=== PATIENT | female | born 1970 | race American Indian/Alaskan Native ===

== ENCOUNTER 2019-01-05 19:52 | Emergency (ER) | payer MEDICAID ==
--- NOTE | 2019-01-05 20:13 | EDM.PDOC ---
ED HPI GENERAL MEDICAL PROBLEM - General Chief Complaint: Genitourinary Problem Stated Complaint: UTI Time Seen by Provider: 01/05/19 19:56 Source of Information: Reports: Patient History Limitations: Reports: No Limitations - History of Present Illness INITIAL COMMENTS - FREE TEXT/NARRATIVE: HISTORY AND PHYSICAL: History of present illness: Patient is a 48-year-old female who presents to the emergency room with complaints of dysuria, pelvic pain and generally feeling unwell. Patient reports that she has had multiple UTIs in the past and is concerned she has UTI now. Patient denies any fever, chills, headache, change in vision, syncope or near syncope. Denies any chest pain, back pain, shortness of breath or cough. Denies any abdominal pain, nausea, vomiting, diarrhea, or constipation. Has not noted any blood in urine or stool. Denies any vaginal bleeding, discharge or concerns of STDs. Patient has been eating and drinking appropriately. Review of systems: As per history of present illness and below otherwise all systems reviewed and negative. Past medical history: As per history of present illness and as reviewed below otherwise noncontributory. Surgical history: As per history of present illness and as reviewed below otherwise noncontributory. Social history: See social history for further information Family history: As per history of present illness and as reviewed below otherwise noncontributory. Physical exam: General: Well-developed and well-nourished 48-year-old female. Alert and oriented. Nontoxic appearing and in no acute distress. HEENT: Atraumatic, normocephalic, pupils equal and reactive bilaterally, negative for conjunctival pallor or scleral icterus, mucous membranes moist, TMs normal bilaterally, throat clear, neck supple, nontender, trachea midline. No drooling or trismus noted. No meningeal signs. No hot potato voice noted. Lungs: Clear to auscultation, breath sounds equal bilaterally, chest nontender. Heart: S1S2, regular rate and rhythm without overt murmur Abdomen: Soft, nondistended, nontender. Negative for masses. Negative for costovertebral tenderness. Pelvis: Stable nontender. Skin: Intact, warm, dry. No lesions or rashes noted. Extremities: Atraumatic, moves all extremities per self without difficulty or deficits, negative for cords or calf pain. Neurovascular unremarkable. Neuro: Awake, alert, oriented. Cranial nerves II through XII unremarkable. Cerebellum unremarkable. Motor and sensory unremarkable throughout. Exam nonfocal. Notes: Patient is requesting something for pain as she has been using Tylenol and ibuprofen without any relief. I'll give her pyridium here, and script for clindamycin. Supportive care measures were reviewed and discussed. Voices understanding and is agreeable to plan of care. Denies any further questions or concerns at this time. Diagnostics: UA Therapeutics: Pyridium Prescription: Clindamycin Tramadol Impression: UTI Plan: 1. Increase your oral fluids. Continue taking the AZO 2. Take the antibiotic as directed. 3. Tylenol and/or ibuprofen as needed for pain management. Tramadol for moderate to severe pain. This may cause drowsiness a do not take it will driving her needing to be functioning outside of the house. 4. Follow-up with your primary care provider as we discussed. Return to the ED as needed and as discussed. Definitive disposition and diagnosis as appropriate pending reevaluation and review of above. Bladder Pain Score (Numeric/FACES): 10 - Related Data Home Meds: Home Meds Sulfamethoxazole/Trimethoprim [Bactrim Ds Tablet] 1 each PO BID #20 tablet 01/09 [Rx] Past Medical History - Past Health History Medical/Surgical History: Denies Medical/Surgical History ED ROS GENERAL - Review of Systems Review Of Systems: ROS reveals no pertinent complaints other than HPI. ED EXAM, RENAL/ - Physical Exam Exam: See Below (See dictation) Course - Vital Signs Last Recorded V/S: Last Vital Signs Temp 97.4 F 01/05/19 20:04 Pulse 90 01/05/19 20:04 Resp 20 01/05/19 20:04 BP 114/70 01/05/19 20:04 Pulse Ox 97 01/05/19 20:04 - Orders/Labs/Meds Orders: Active Orders 24 hr Category Date Time Status CULTURE URINE [RM] Stat Lab 01/05/19 20:10 Received UA W/MICROSCOPIC [URIN] Stat Lab 01/05/19 20:10 Results Labs: Laboratory Tests 01/05/19 Range/Units 20:10 Urine Color ORANGE Urine Appearance SLT CLOUDY Urine pH 6.5 (5.0-8.0) Ur Specific Ragan <= 1.005 (1.001-1.035) Urine Protein NEGATIVE (NEGATIVE) mg/dL Urine Glucose (UA) NEGATIVE (NEGATIVE) mg/dL Urine Ketones NEGATIVE (NEGATIVE) mg/dL Urine Occult Blood MODERATE H (NEGATIVE) Urine Nitrite POSITIVE H (NEGATIVE) Urine Bilirubin NEGATIVE (NEGATIVE) Urine Urobilinogen 1.0 (<2.0) EU/dL Ur Leukocyte Esterase SMALL H (NEGATIVE) Meds: Medications Discontinued Medications Generic Name Dose Route Start Last Admin Trade Name Freq PRN Reason Stop Dose Admin Phenazopyridine HCl 200 mg 01/05/19 20:21 Pyridium PO 01/05/19 20:22 ONETIME ONE Departure - Departure Time of Disposition: 20:33 Disposition: Home, Self-Care 01 Clinical Impression: UTI, Urinary tract infectious disease - Discharge Information Instructions: Urinary Tract Infection, Adult, [id number] Referrals: PCP,None [Primary Care Provider] - Forms: ED Department Discharge Additional Instructions: The following information is given to patients seen in the emergency department who are being discharged to home. This information is to outline your options for follow-up care. We provide all patients seen in our emergency department with a follow-up referral. The need for follow-up, as well as the timing and circumstances, are variable depending upon the specifics of your emergency department visit. If you don't have a primary care physician on staff, we will provide you with a referral. We always advise you to contact your personal physician following an emergency department visit to inform them of the circumstance of the visit and for follow-up with them and/or the need for any referrals to a consulting specialist. The emergency department will also refer you to a specialist when appropriate. This referral assures that you have the opportunity for follow-up care with a specialist. All of these measure are taken in an effort to provide you with optimal care, which includes your follow-up. Under all circumstances we always encourage you to contact your private physician who remains a resource for coordinating your care. When calling for follow-up care, please make the office aware that this follow-up is from your recent emergency room visit. If for any reason you are refused follow-up, please contact the [facility] Emergency Department at and asked to speak to the emergency department charge nurse. [facility] [address] [place] [id number] [facility] [address] [place] [id number] 1. Increase your oral fluids. Continue taking the AZO 2. Take the antibiotic as directed. 3. Tylenol and/or ibuprofen as needed for pain management. Tramadol for moderate to severe pain. This may cause drowsiness a do not take it will driving her needing to be functioning outside of the house. 4. Follow-up with your primary care provider as we discussed. Return to the ED as needed and as discussed. - My Orders Last 24 Hours: My Active Orders 01/05/19 20:10 CULTURE URINE [RM] Stat UA W/MICROSCOPIC [URIN] Stat - Assessment/Plan Last 24 Hours: My Active Orders 01/05/19 20:10 CULTURE URINE [RM] Stat UA W/MICROSCOPIC [URIN] Stat
[2019-01-05] MEDS ORDERED: Phenazopyridine 200 MG Tab PO ONE (20:21)
== END 2019-01-05 20:45 | disposition home or self-care (01) ==
LOC: EEVIPCON 19:52 → MW.ED 19:52
DX: N39.0 Urinary tract infection, site not specified (principal); Z79.899 Other long term (current) drug therapy
CPT/HCPCS: 81001; 87086; 87088; 87186; 99283; A9270

== ENCOUNTER 2020-04-05 01:37 | Emergency (ER) | payer MEDICAID ==
--- NOTE | 2020-04-05 02:17 | EDM.PDOC ---
ED HPI GENERAL MEDICAL PROBLEM - General Chief Complaint: Drug or Alcohol Abuse Stated Complaint: FEELS LIKE SHE WAS DRUGGED Time Seen by Provider: 04/05/20 01:53 Source of Information: Reports: Patient - History of Present Illness INITIAL COMMENTS - FREE TEXT/NARRATIVE: history of present illness: 49-year-old female presenting with feeling anxious and concerned that she may have accidentally ingested some kind of a drug. She took what she thought was a CBD pill because she has been under extreme stress caring for her ill father and assisting him with dialysis, and she has been under somewhat stress that she developed a cold sore. Her cousin gave her some kind of a CBD pill and told her to apply some directly to the cold sore and then take the pill which she took around 11 PM last night, however she had a very bad reaction after taking that and started to feel extremely anxious, restless, pacing, nauseous and thought she may have been accidentally drugged. Denies regular drug use. Review of systems: As per history of present illness and below otherwise all systems reviewed and negative. Past medical history: As per history of present illness and as reviewed below otherwise noncon tributory. Surgical history: As per history of present illness and as reviewed below otherwise noncontributory. Social history: No tobacco or alcohol, rare marijuana use Family history: As per history of present illness and as reviewed below otherwise noncontributory. Physical exam: GEN: no acute distress, well appearing HEENT: Atraumatic, normocephalic, mucous membranes moist, developing cold sore on lower lip Neck: supple. Lungs: No respiratory distress. Heart: RRR Extremities: Atraumatic. Neurovascularly intact. Neuro: Awake, alert, oriented. Neuro Exam nonfocal. Skin: warm, dry, cold sore on internal lower lip Neck: Appears anxious, pacing Diagnostics: Drug screen, at patient's request Therapeutics: Ativan MDM: Impression: [] Plan: [] Definitive disposition and diagnosis as appropriate pending reevaluation and review of above. 49-year-old female - Related Data Allergies Allergy/AdvReac Type Severity Reaction Status Date / Time No Known Allergies Allergy Verified 04/05/20 02:19 Home Meds: Home Meds Acyclovir 5 gm TP 5XDAY 4 Days #5 cream..g. 04/05/20 [Rx] LORazepam [Ativan] 0.5 mg PO Q12HR PRN #5 tablet 04/05/20 [Rx] Past Medical History - Past Health History Medical/Surgical History: Denies Medical/Surgical History ED ROS GENERAL - Review of Systems Review Of Systems: See Below (See HPI) - Physical Exam Exam: See Below (See HPI) EKG INTERPRETATION EKG Interpretation Comments: EKG performed today at 2 4 AM, sinus tachycardia, rate 98, PVC, QTC 432, no STEMI. Interpreted by me. Course - Vital Signs Text/Narrative:: CBD ingestion with likely adulterant. Patient feeling very anxious. Given Ativan and tolerated well. Feeling much better. Patient requesting drug screen which shows positive marijuana. Patient declined test, reports no possibility of , no sexual activity and has IUD in place. Will prescribe topical acyclovir for her developing cold sore, and at patient's request very small prescription for Ativan as she is extremely stressed about her father and suspects that he will at any time and she does not think that she can handle flying back and forth on the plane back to [place]. Last Recorded V/S: Last Vital Signs Temp 97.8 F 04/05/20 01:53 Pulse 104 H 04/05/20 02:39 Resp 18 04/05/20 02:39 BP 128/80 04/05/20 02:39 Pulse Ox 96 04/05/20 02:39 - Orders/Labs/Meds Labs: Laboratory Tests 04/05/20 Range/Units 03:10 Urine Opiates Screen NEGATIVE (NEGATIVE) Ur Oxycodone Screen NEGATIVE (NEGATIVE) Urine Methadone Screen NEGATIVE (NEGATIVE) Ur Barbiturates Screen NEGATIVE (NEGATIVE) Ur Phencyclidine Scrn NEGATIVE (NEGATIVE) Ur Amphetamine Screen NEGATIVE (NEGATIVE) U Methamphetamines Scrn NEGATIVE (NEGATIVE) U Benzodiazepines Scrn NEGATIVE (NEGATIVE) U Cocaine Metab Screen NEGATIVE (NEGATIVE) U Marijuana (THC) Screen POSITIVE (NEGATIVE) Meds: Medications Discontinued Medications Generic Name Dose Route Start Last Admin Trade Name Freq PRN Reason Stop Dose Admin Lorazepam 1 mg 04/05/20 02:32 04/05/20 02:36 Ativan PO 04/05/20 02:33 1 mg ONETIME ONE Administration - Re-Assessments/Exams Free Text/Narrative Re-Assessment/Exam: 04/05/20 04:01 Feeling much better. Stable for discharge. Still feels slightly anxious but otherwise feeling well and would like to be discharged home Departure - Departure Time of Disposition: 04:01 Disposition: Home, Self-Care 01 Clinical Impression: Cold sore Accidental ingestion of substance Qualifiers: Encounter type: initial encounter Qualified Code(s): T65.91XA - Toxic effect of unspecified substance, accidental (unintentional), initial encounter - Discharge Information Prescriptions: Acyclovir 5 gm TP 5XDAY 4 Days #5 cream..g. LORazepam [Ativan] 0.5 mg PO Q12HR PRN #5 tablet PRN Reason: Anxiety Instructions: Cold Sore, [id number] Referrals: PCP,None [Primary Care Provider] - Forms: ED Department Discharge Additional Instructions: The following information is given to patients seen in the emergency department who are being discharged to home. This information is to outline your options fo r follow-up care. We provide all patients seen in our emergency department with a follow-up referral. The need for follow-up, as well as the timing and circumstances, are variable depending upon the specifics of your emergency department visit. If you don't have a primary care physician on staff, we will provide you with a referral. We always advise you to contact your personal physician following an emergency department visit to inform them of the circumstance of the visit and for follow-up with them and/or the need for any referrals to a consulting specialist. The emergency department will also refer you to a specialist when appropriate. This referral assures that you have the opportunity for follow-up care with a specialist. All of these measure are taken in an effort to provide you with optimal care, which includes your follow-up. Under all circumstances we always encourage you to contact your private physician who remains a resource for coordinating your care. When calling for follow-up care, please make the office aware that this follow-up is from your recent emergency room visit. If for any reason you are refused follow-up, please contact the [facility] Emergency Department at and asked to speak to the emergency department charge nurse. Please follow-up with your primary care physician whenever you return home. Re turn to the emergency department if you have any worsening symptoms. You have been provided with a prescription for topical acyclovir for your cold sore, as well as a very small prescription of lorazepam in case you are extremely anxious and have difficulty traveling on the plane. Medication is sedating and do not take it if you need to drive. Sepsis Event Note (ED) - Focused Exam Vital Signs: Vital Signs Temp Pulse Resp BP Pulse Ox 04/05/20 02:39 104 H 18 128/80 96 04/05/20 01:53 97.8 F 116 H 14 139/93 H 98
[2020-04-05] MEDS ORDERED: LORazepam 1 MG Tab PO ONE (02:32)
== END 2020-04-05 04:27 | disposition home or self-care (01) ==
LOC: MW.ED 01:37
DX: T40.7X1A Poisoning by cannabis (derivatives), accidental (unintentional), initial encounter (principal); L98.9 Disorder of the skin and subcutaneous tissue, unspecified
CPT/HCPCS: 80305; 93005; 99284; A9270; 99283